=== PATIENT | male | born 1975 | race Hispanic/Latino ===

== ENCOUNTER 2019-08-16 16:57 | Emergency (ER) | payer OTHER ==
[~2019-08-16] VITALS: Ht 170.2 cm; Wt 113.4 kg
[2019-08-16] MEDS ORDERED: HYDROCODONE/APAP 5MG-325MG TAB PO ONE (17:15)
--- NOTE | 2019-08-16 18:23 | Diagnostic Imaging Report ---
CT BRAIN WO HISTORY: Fall COMPARISON: None. TECHNIQUE: Noncontrast axial scans were obtained from skull base to the vertex. Coronal and sagittal reconstructions obtained from the axial data. One or more of the following dose reduction techniques were used: Automated exposure control, adjustment of the mA and/or kV according to patient size, and/or utilization of iterative reconstruction technique. DISCUSSION: Scalp/Skull: Left frontal scalp hematoma is not associated with calvarial fracture. Incidental small lipoma seen in the right parieto-occipital scalp. Brain sulci: Appropriate for patient's age. Ventricles: Normal in size and configuration. No hydrocephalus. Extra-axial spaces: No masses or fluid collections. Parenchyma: No abnormal densities. No mass, hemorrhage, or large vascular territory acute infarct. Dural sinuses: No abnormal densities. Sellar/Suprasellar region: Intact. Skull base: Intact. Incidental findings: None. IMPRESSION: No intracranial abnormalities. Signed by: Dr. Javed Blair M.D. on 08/16/2019 6:19 PM
--- NOTE | 2019-08-16 18:27 | Diagnostic Imaging Report ---
CT CERVICAL SPINE WO HISTORY: Fall COMPARISON: Concurrent head CT TECHNIQUE: CT of the cervical spine without contrast. Sagittal and coronal reformations were created. One or more of the following dose reduction techniques were used: Automated exposure control, adjustment of the mA and/or kV according to patient size, and/or utilization of iterative reconstruction technique. FINDINGS: Cervical lordosis is straightened. There is no scoliosis or subluxation. No fractures, compression deformity, or destructive osseous lesions are seen. The craniocervical junction is intact. No gross spinal canal masses are seen. The paravertebral and paraspinal soft tissues are unremarkable. There are mild spondylotic changes at C5-C6. IMPRESSION: No acute osseous abnormalities. Signed by: Dr. Javed Blair M.D. on 08/16/2019 6:24 PM
--- NOTE | 2019-08-16 18:50 | Diagnostic Imaging Report ---
Exam: Right femur, 4 views History: Status post fall Comparison: None. Findings: There is normal bone mineralization. No acute, displaced fracture or dislocation. Joint spaces are relatively well-preserved. No lytic or blastic lesions. No soft tissue defects. Linear 2.1 cm opacity projecting in the soft tissues posterior to the proximal tibia may represent phleboliths or sequela of prior trauma. No soft tissue swelling. Impression: 1. No acute abnormalities. Signed by: Dr. Omega Phillip M.D. on 08/16/2019 6:47 PM
--- OUTSIDE RECORDS SUMMARY | 2019-08-26 10:39 | XMS REPORT ---
[facility] Address Unknown Phone Unavailable Care Team Providers Care Negotiator Sales Name Role Phone ANABELL WORTHINGTON Unavailable Unavailable Problems This patient has no known problems. Allergies, Adverse Reactions, Alerts This patient has no known allergies or adverse reactions. Medications This patient has no known medications. Results Test Description Test Time Test Comments Text Results Atomic Results Result Comments FEMUR TWO VIEW MINIMUM RIGHT 2019-08-16 18:45:00 [place] [address] Patient Name: JOSE BURGESS MR #: [id number] : 1975 Age/Sex: 44/M Req #: [id number] Adm Physician: Ordered by: KASSY COULTER HOUSE DIRECTOR Report #: [id number] Location: ER Room/Bed: Procedure: [id number] DX/FEMUR TWO VIEW MINIMUM RIGHT Exam Date: Exam Time: REPORT STATUS: Signed Exam: Right femur, 4 views History: Status post fall Comparison: None. Findings: There is normal bone mineralization. No acute, displaced fracture or dislocation. Joint spaces are relatively well- preserved. No lytic or blastic lesions. No soft tissue defects. Linear 2.1 cm opacity projecting in the soft tissues posterior to the proximal tibia may represent phleboliths or sequela of prior trauma. No soft tissue swelling. Impression: 1. No acute abnormalities. Signed by: Dr. Genevieve Phililp M.D. on 08/16/2019 6:47 PM Dictated By: GENEVIEVE PHILLIP MD 46 Transcribed By: ROB on 08/16/191846 COPY TO: KASSY COULTER NP CT CERVICAL SPINE WO 2019-08-16 18:20:00 [place] [address] Patient Name: JOSE BURGESS MR #: [id number] : 1975 Age/Sex: 44/M Req #: [id number] Adm Physician: Ordered by: KASSY COULTER NP Report #: [id number] Location: ER Room/Bed: Procedure: [id number] CT/CT CERVICAL SPINE WO Exam Date: 08/16/19 Exam Time: 1730 REPORT STATUS: Signed CT CERVICAL SPINE WO HISTORY: Fall C OMPARISON: Concurrent head CT TECHNIQUE: CT of the cervical spine without contrast. Sagittal and coronal reformations were created. One or more of the following dose reduction techniques were used: Automated exposure control, adjustment of the mA and/or kV according to patient size, and/or utilization of iterative reconstruction technique. FINDINGS: Cervical lordosis is straightened. There is no scoliosis or subluxation. No fractures, compression deformity, or destructive osseous lesions are seen. The craniocervical junction is intact. No gross spinal canal masses are seen. The paravertebral and paraspinal soft tissues are unremarkable. There are mild spondylotic changes at C5-C6. IMPRESSION: No acute osseous abnormalities. Signed by: Dr. Javed Blair M.D. on 08/16/2019 6:24 PM Dictated By: JAVED BLAIR MD 23 Transcribed By: ROB on 08/16/191823 COPY TO: KASSY COULTER NP CT BRAIN WO 2019-08-16 18:16:00 [facility] [address] [place] [address] Patient Name: JOSE BURGESS MR #: [id number] : 1975 Age/Sex: 44/M Req #: [id number] Adm Physician: Ordered by: KASSY COULTER NP Report #: [id number] Location: ER Room/Bed: Procedure: [id number] CT/CT BRAIN WO Exam Date: 08/16/19 Exam Time: 1730 REPORT STATUS: Signed CT BRAIN WO HISTORY: Fall COMPARISON: None. TECHNIQUE: Noncontrast axial scans were obtained from skull base to the vertex. Coronal and sagittal reconstructions obtained from the axial data. One or more of the following dose reduction techniques were used: Automated exposure control, adjustment of the mA and/or kV according to patient size, and/or utilization of iterative reconstruction technique. DISCUSSION: Scalp/Skull: Left frontal scalp hematoma is not associated with calvarial fracture. Incidental small lipoma seen in the right parieto-occipital scalp. Brain sulci: Appropriate for patient's age. Ventricles: Normal in size and configuration. No hydrocephalus. Extra-axial spaces: No masses or fluid collections. Parenchyma: No abnormal densities. No mass, hemorrhage, or large vascular territory acute infarct. Dural sinuses: No abnormal densities. Sellar/Suprasellar region: Intact. Skull base: Intact. Incidental findings: None. IMPRESSION: No intracranial abnormalities. Signed by: Dr. Javed Blair M.D. on 08/16/2019 6:19 PM Dictated By: JAVED BLAIR MD 18 Transcribed By: ROB on 08/16/191818 COPY TO: KASSY COULTER NP
== END 2019-08-16 19:09 | disposition home or self-care (01) ==
LOC: ER 16:57
DX: S00.01XA Abrasion of scalp, initial encounter (principal); S50.311A Abrasion of right elbow, initial encounter; S50.811A Abrasion of right forearm, initial encounter; S70.311A Abrasion, right thigh, initial encounter; W20.8XXA Other cause of strike by thrown, projected or falling object, initial encounter; Y92.69 Other specified industrial and construction area as the place of occurrence of the external cause; Y99.0 Civilian activity done for income or pay
CPT/HCPCS: 70450; 72125; 99283